=== PATIENT | male | born 1960 | race Caucasian/White ===

== ENCOUNTER 2017-01-06 14:55 | Emergency (ER) | payer BC, OTHER ==
[~2017-01-06] VITALS: Ht 182.9 cm; Wt 68.0 kg
[~2017-01-06 14:55] MED LIST: ASCO500T3 PO; IBUP-1050 PO; MULTTAB58 PO; PSEU30TA20 PO
[2017-01-06 15:07] VITALS: TEMP 36.8; Ht 182.9 cm; Wt 68.0 kg
[2017-01-06] MEDS ORDERED: LORA10TA5 PO (15:44)
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
[2017-01-06 16:49] VITALS: BP 93/63; PULSE 63; O2SAT 99
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
== END 2017-01-06 16:51 | disposition home or self-care (01) ==
LOC: C.EDB 14:57 → C.EDD 16:51
DX: M54.2 Cervicalgia (principal); M85.88 Other specified disorders of bone density and structure, other site; M47.812 Spondylosis without myelopathy or radiculopathy, cervical region; R42 Dizziness and giddiness; Z87.828 Personal history of other (healed) physical injury and trauma